=== PATIENT | female | born 1975 | race Caucasian/White ===

== ENCOUNTER 2017-05-17 23:07 | Emergency (ER) | payer BC, SELFPAY ==
[2017-05-17 23:08] VITALS: BP 154/117; PULSE 127; RESP 20; TEMP 37; O2SAT 97; BMI 37.5
--- NOTE | 2017-05-17 23:24 | EKG12_ITS ---
Test Reason : CP Blood Pressure : / mmHG Vent. Rate : 113 BPM Atrial Rate : 113 BPM P-R Int : 146 ms QRS Dur : 084 ms QT Int : 318 ms P-R-T Axes : 035 -02 -02 degrees QTc Int : 436 ms Sinus tachycardia Otherwise normal ECG Confirmed by IBRAHIMA BARILLAS ([id number]), online editor ELIA GONZALEZ ([id number] on 05/22/2017 10:01:15 AM Referred By: WALT Confirmed By:IBRAHIMA BARILLAS
--- NOTE | 2017-05-17 23:24 | RAD_ITS ---
STUDY: X-RAY CHEST REASON FOR EXAM: Female, 42 years old. Cough and fever. TECHNIQUE: PA and lateral views of the chest. COMPARISON: 05/02/2017. FINDINGS: The lungs are clear and expanded. There is no demonstrated pleural abnormality. Normal size heart. Normal mediastinum and claudia. Normal visualized pulmonary arteries. Normal visualized aortic arch and descending thoracic aorta. Normal visualized thoracic spine. Normal visualized ribs, clavicles, and shoulders. There is no demonstrated abnormality of the visualized soft tissue structures of the upper abdomen. RAD/Chest PA and Lateral IMPRESSION: No active pulmonary disease. Electronically Signed: Chris Goff MD at 0:07 EST Tel , Service support ,
--- NOTE | 2017-05-17 23:27 | ED.VISSUMM ---
- ER Visit Summary Date of Service: 05/17/17 Chief Complaint: [] Shortness of breath. History of Present Illness: The patient is a 42 F [] complaining of shortness of breath worsening over the last 1-2 days. Patient reports she was seen 3 weeks ago this emergency department and treated clinically for pneumonia with a Z-Shane despite a negative chest x-ray. She reports symptoms improved over the next week however slowly declined to the point where the patient has a consistent cough, nonproductive. She reports shortness of breath. She reports subjective fevers at home. No other complaints at this time. Physical Examination: [] Tachycardic at a rate of 127. Patient is afebrile. Remainder of vitals are within normal limits. Cardiovascular exam reveals slight tachycardia however regular rhythm. Lungs are clear to auscultation without wheezing, rhonchi, Rales. Abdomen is soft and nontender. No lower extremity edema. Test Results: [] Chest x-ray 2 views negative. EKG shows normal sinus rhythm rate of 113 without ectopy or ischemic changes. CBC and BMP are within normal limits with exception of a potassium slightly low at 3.3. Rapid flu swab: Negative. Emergency Department Course and Treatment: [] Patient given intravenous fluid bolus, Toradol, Phenergan. On serial exam had slight improvement of symptoms. She was given a prescription for Tessalon Perles she had a negative workup. I did not feel that any further treatment was warranted. She was encouraged to follow-up with her primary care physician. Treatment Plan: [] Follow-up with primary care physician. Prescription anticough medicine. Disposition: [] Discharge, stable. Impression: [] Bronchitis This note was generated with [employer] dictation software. It may contain incorrect words, spelling, and punctuation that were not noted in review of the chart prior to signing ED Disposition - Plan for ED Patient: Chief Complaint: Shortness of Breath Referrals: Care Physician,No Primary [Primary Care Provider] -
[2017-05-17] MEDS: 0.9% Normal Saline 1,000 ML 1000 ML IV (23:45)
[2017-05-17] MEDS: Ketorolac 15 MG/ML Vial IV (23:45)
[2017-05-17 23:55] LABS: Absolute Neutrophil Count 2.9 X10^3/uL (2.0-7.7); Basophil# 0.01 X10^3/uL; Basophil% 0.2 % (0-1); Eosinophil# 0.01 X10^3/uL; Eosinophils% 0.2 % (0-5); Hematocrit 38.4 % (37-47); Hemoglobin 13.4 g/dl (12.0-15.0); Lymphocyte % 16.8 % (19-41); Mean Corp Hgb Conc 34.9 g/gl (32-36); Mean Corpuscular Hgb 31.3 pg (27.0-32.0); Mean Corpuscular Volume 89.7 fL (81-99); Mean Platelet Vol. 10.8 fl (6.2-12.0); Monocyte# 0.51 X10^3/uL; Monocyte% 12.3 % (0-10); Neutrophil # 2.92 X10^3/uL (2.7-7.7); Neutrophil % 70.3 % (47-70); Platelet Count 141 K/mm3 (150-450); RBC Distribution Width CV 12.5 % (11.6-14.6); RBC Distribution Width SD 40.4 fl (35.1-43.9); Red Blood Count 4.28 M/mm3 (4.2-5.4); White Blood Count 4.2 K/mm3 (4.4-11.0)
[2017-05-17 23:57] LABS: POSITIVE COUNT NO; POSITIVE DIFFERENTIAL NO; POSITIVE MORPHOLOGY NO
[2017-05-18 00:05] LABS: Anion Gap 10 (5-15); BUN 11 mg/dL (7-18); Calcium,Total 8.2 mg/dL (8.5-10.1); Chloride 107 mmol/L (98-107); Creatinine, Serum 0.69 mg/dL (0.55-1.02); EST Glomerular Filtration Rate 99 mL/min (>60); Est Glom Filt Rate - Afr Amer 120 mL/min (>60); Glucose 96 mg/dL (70-110); Potassium 3.3 mmol/L (3.5-5.1); Sodium Level 141 mmol/L (136-145)
--- NOTE | 2017-05-18 00:34 | ED.DEP ---
ED Disposition - Plan for ED Patient: Disposition: Home or Assisted Living Chief Complaint: Shortness of Breath Instructions: ED Upper Resp Infec No Abx Tx Prescriptions: Benzonatate [Tessalon Perle] 100 mg PO TID PRN PRN #15 cap PRN Reason: Cough Referrals: Care Physician,No Primary [Primary Care Provider] -
[2017-05-18 01:01] VITALS: BP 142/60; PULSE 82; RESP 20; O2SAT 98
== END 2017-05-18 01:02 | disposition home or self-care (01) ==
PROVIDERS: Emergency Provider Emergency Medicine
DX: J40 Bronchitis, not specified as acute or chronic (principal); Z87.01 Personal history of pneumonia (recurrent)
CPT/HCPCS: 71046; 80048; 85025; 87804; 93005; 96361; 96374; 96375; 99283; J7030

== ENCOUNTER 2018-10-18 11:26 | Emergency (ER) | payer BC, SELFPAY ==
[2018-10-18 11:27] VITALS: BP 140/95; PULSE 90; RESP 20; TEMP 36.6; O2SAT 98; BMI 33.3
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
--- NOTE | 2018-10-18 11:40 | CT_ITS ---
STUDY: CT BRAIN WITHOUT CONTRAST REASON FOR EXAM: Female, 43 years old. By gradient headache RADIATION DOSAGE (If Supplied By Facility): CTDIvol = ( 44.99 ) mGy, DLP = ( 779.24 ) mGycm TECHNIQUE: Transaxial CT imaging of the brain was performed without administration of intravenous contrast material. Sagittal and coronal 2-D MPR. Individualized dose optimization techniques were used for this CT. COMPARISON: None. FINDINGS: Extracranial soft tissues including orbital contents exhibit no acute abnormality. Craniofacial osseous structures within the field of view exhibit no acute abnormality. Paranasal sinuses, mastoid air cells and middle ear cavities are clear. Normal size ventricles and extra-axial spaces for the patient's age. Normal pituitary, brainstem and cerebellum There is no acute intracranial bleed, mass or mass effect nor any specific evidence of acute territorial infarct. CT/Brain/Head without Contrast IMPRESSION: No acute intracranial process. Electronically Signed: Lokesh Claros MD at 12:49 EDT Tel , Service support ,
[2018-10-18] MEDS: proCHLORPERazine 10 MG/2 ML Vial IV (11:52)
[2018-10-18] MEDS: DiphenhydrAMINE 50 MG/ML Syringe 25 MG IV (11:52)
[2018-10-18] MEDS: 0.9% Normal Saline 1,000 ML 999 ML IV (11:52)
[2018-10-18 11:53] LABS: Absolute Neutrophil Count 3.4 X10^3/uL (2.0-7.7); Basophil# 0.01 X10^3/uL; Basophil% 0.2 % (0-1); Eosinophil# 0.14 X10^3/uL; Eosinophils% 2.6 % (0-5); Hematocrit 39.8 % (37-47); Hemoglobin 13.6 g/dl (12.0-15.0); Mean Corp Hgb Conc 34.2 g/gl (32-36); Mean Corpuscular Hgb 30.4 pg (27.0-32.0); Mean Platelet Vol. 9.4 fl (6.2-12.0); Monocyte# 0.52 X10^3/uL; Monocyte% 9.6 % (0-10); Neutrophil # 3.43 X10^3/uL (2.7-7.7); Neutrophil % 63.4 % (47-70); Platelet Count 252 K/mm3 (150-450); RBC Distribution Width SD 38.2 fl (35.1-43.9); Red Blood Count 4.47 M/mm3 (4.2-5.4); White Blood Count 5.4 K/mm3 (4.4-11.0)
[2018-10-18 11:54] LABS: POSITIVE COUNT NO; POSITIVE DIFFERENTIAL NO; POSITIVE MORPHOLOGY NO
--- NOTE | 2018-10-18 11:55 | ED.VISSUMM ---
- ER Visit Summary Date of Service: 10/18/18 Chief Complaint: Headache History of Present Illness: The patient is a 43 F who presents with migraine headache that began today. Patient states she woke up with her headache. Patient states the pain is over the frontal and occipital areas. She admits to some photophobia. Patient admits to nausea but denies any vomiting. Patient also admits to some dizziness. Patient denies any fevers or chills. Patient denies any paresthesias or weakness. Patient denies any neck or back pain. Physical Examination: Vital signs are stable. Patient is afebrile. Patient is in no acute distress. Cranial nerves II through XII are intact. Strength is 5/5 bilaterally upper and lower extremities. There are no sensory deficits noted. Neck is supple. Trachea is midline. There is no JVD noted. Heart was regular rate and rhythm. Lungs are clear and equal bilateral. Abdomen is soft and nontender. Test Results: CT scan of the brain was obtained and was negative. CBC and basic metabolic profile were essentially within normal limits. Emergency Department Course and Treatment: Patient was given IV fluids, Compazine, and Benadryl. Patient states her headache was improving. Patient was given an injection of Toradol. Patient was instructed to rest in a dark quiet room. Patient was instructed to follow-up with her primary care physician in 5 to 7 days. Patient understood and was agreeable with the plan. All questions were answered. Disposition: Discharge home Impression: Migraine headache This note was generated with [email or web address] dictation software. It may contain incorrect words, spelling, and punctuation that were not noted in review of the chart prior to signing ED Disposition - Plan for ED Patient: Disposition: Home or Assisted Living Diagnosis: Migraine headache Instructions: HEADACHE, Unspecified Referrals: Luis Eduardo Walden MD [Primary Care Provider] - 3-5 Days
[2018-10-18 12:07] LABS: Anion Gap 6 (5-15); BUN 10 mg/dL (7-18); BUN/Creat Ratio 13.5 RATIO (10-20); Calcium,Total 8.9 mg/dL (8.5-10.1); Chloride 105 mmol/L (98-107); Creatinine, Serum 0.74 mg/dL (0.55-1.02); EST Glomerular Filtration Rate 90 mL/min (>60); Est Glom Filt Rate - Afr Amer 109 mL/min (>60); Estimated Creatinine Clearance 77.53 ml/min; Glucose 81 mg/dL (74-106); Sodium Level 141 mmol/L (136-145)
[2018-10-18] MEDS: LORazepam 2 MG/ML Syringe 0.5 MG IV (12:24)
[2018-10-18] MEDS: Ketorolac 30 MG/ML Syringe IV (13:47)
[2018-10-18 14:05] VITALS: BP 130/80; PULSE 88; RESP 18; O2SAT 98
== END 2018-10-18 14:09 | disposition home or self-care (01) ==
PROVIDERS: Emergency Provider Emergency Medicine; Family Provider Family Medicine; PCP Family Medicine
DX: G43.909 Migraine, unspecified, not intractable, without status migrainosus (principal)
CPT/HCPCS: 70450; 80048; 85025; 96361; 96374; 96375; 99283; J7030; A4216

== ENCOUNTER 2019-08-23 17:06 | Emergency (ER) | payer BC, SELFPAY ==
[2019-08-23 17:09] VITALS: BP 134/92; PULSE 102; PULSE 109; RESP 18; RESP 19; TEMP 36.9; O2SAT 96; O2SAT 97; BMI 34.7
--- NOTE | 2019-08-23 17:45 | RAD_ITS ---
STUDY: X-RAY - LEFT KNEE REASON FOR EXAM: Female, 44 years old. WORSENING KNEE PAIN S/P INJURY FEW DAYS AGO TECHNIQUE: 4 view(s) of the knee. COMPARISON: None. FINDINGS: Normal visualized distal femur. Normal visualized proximal tibia and fibula. Normal proximal tibiofibular articulation. Normal medial femorotibial compartment. Normal lateral femorotibial compartment. Normal patellofemoral articulation. The soft tissue structures are unremarkable. RAD/Knee 4 or More Views IMPRESSION: Normal x-ray examination of the knee. Electronically Signed: Reyna Shrestha MD at 18:06 EDT Tel , Service support ,
[2019-08-23] MEDS: Ibuprofen 600 MG Tablet PO (17:54)
--- NOTE | 2019-08-23 18:06 | ED.DCSUM_ITS ---
- ER Visit Summary Date of Service: 08/23/19 Chief Complaint: Left knee pain History of Present Illness: The patient is a [address] Jan Plata. She reports that a week ago her 3-year-old granddaughter jumped on her left knee while she had a straight on a couch. Reports that since that time she had a sharp pain Zeta 10 at worst and 6 out of 10 currently. Is worsened by bending or walking. Is relieved by rest. She is not taken anything for pain. She denies any numbness or weakness distally. Denies any other injuries or complaints. Physical Examination: Vitals: Stable. Afebrile. General: Well-nourished and well-developed. Head: Normocephalic atraumatic. Neck: Supple, no lymphadenopathy. No JVD. Nontender. Cardiovascular: Regular rate and rhythm. No murmurs. Respiratory: No respiratory distress. Clear to auscultation bilaterally. Abdominal: Soft, nontender, nondistended, normal bowel sounds. No guarding, rebound, or peritoneal signs. Back: Nontender. Extremities: Moderate diffuse rash outpatient over her knee with a mild joint effusion. She has pain, but no ligamentous instability with anterior/posterior drawer or medial/lateral stress. She has a negative Aubree bilaterally. She is neuro vas intact distal to this. Skin: Normal color, no rash. Neurologic: Alert and oriented ?3. Cranial nerves II through XII are intact. Normal strength and sensation. Psych: Normal affect. Test Results: Clinical Impression(s) from Imaging Studies Knee X-Ray 08/23/19 17:45 IMPRESSION: Normal x-ray examination of the knee. Electronically Signed: Reyna Shrestha MD at 18:06 EDT Tel , Service support , Emergency Department Course and Treatment: Patient was here with ibuprofen. She is resting comfortably. She refused crutches. Treatment Plan: Had a prolonged discussion with the patient that I cannot rule out a ligamentous or cartilaginous injury. She will be discharged with symptomatic care. Ice the area. Use Tylenol and/or ibuprofen for pain. Follow-up Dr. Salmon in 1 week if not improving. Return to the emergency department for any worsening symptoms. Disposition: To home in improved and stable condition. Impression: 1. Left knee pain, uncertain cause. This note was generated with [employer] dictation software. It may contain incorrect words, spelling, and punctuation that were not noted in review of the chart prior to signing ED Disposition - Plan for ED Patient: Disposition: Home or Assisted Living Instructions: ED Knee Pain [facility] Prescriptions: Naproxen [Naprosyn] 500 mg PO BID #14 tab Prescription Printed Hydrocodone Bitart/Apap 5-325 [Boley 5MG-325MG] 1 tab PO Q4H PRN PRN 2 Days #10 tab PRN Reason: Pain Prescription Printed Referrals: Toshia Salmon DO [STAFF PHYSICIAN] - 1 Week if not improving
== END 2019-08-23 18:29 | disposition home or self-care (01) ==
PROVIDERS: Emergency Provider Emergency Medicine; PCP Family Medicine
DX: M25.562 Pain in left knee (principal); F32.9 Major depressive disorder, single episode, unspecified; F43.10 Post-traumatic stress disorder, unspecified
CPT/HCPCS: 73564; 99283

== ENCOUNTER 2020-04-18 10:24 | Emergency (ER) | payer BC, SELFPAY ==
[2020-04-18 10:25] VITALS: BP 126/80; PULSE 89; RESP 16; TEMP 35.8; O2SAT 97; BMI 34.0
[2020-04-18 10:33] VITALS: O2SAT 98
--- NOTE | 2020-04-18 10:38 | ED.VIS.URI ---
History of Present Illness Informant: Patient Onset: Days - 4 days Context: Gradual Onset Timing: Continuous Quality: Aching Location: Myalgias Current Severity: Moderate Maximum Severity: Moderate Worsened by: - - Nothing Relieved by: Tylenol, NSAIDs Associated Symptoms: Nasal Congestion, Myalgias, Nonproductive cough. Negative for: Headache, Sinus Pressure, Nausea, Vomiting, Diarrhea, Shortness of Breath, Chest Pain, Hemoptysis, Productive Cough Narrative: 45-year-old female history of depression denies any other significant past medical history presents with concern for COVID-19. Her daughter tested +6 days ago. For the last 4 days she has had a nonproductive cough, myalgias and chills, and this morning she woke up and lost her senses of both taste and smell. No fever. No chest pain no shortness of breath no hemoptysis. No leg pain or swelling. No vomiting or diarrhea. She is not lightheaded or dizzy. Prior similar symptoms: No Recent Illness/Hospitalization: No <Deuce Allen - Last Filed: 04/18/20 10:38> <Thad Harp - Last Filed: 04/18/20 13:14> Chief Complaint: Cough Past Medical History Prior records reviewed: Yes Past Medical History: - - Depression Surgical History: no surgical history Lives: With Family Smoking Status: Never smoker Alcohol: None Drugs: None <Deuce Allen - Last Filed: 04/18/20 10:38> <Thad Harp - Last Filed: 04/18/20 13:14> - Allergies and Home Meds Allergies/Adverse Reactions: Allergies No Known Allergies Allergy (Verified 04/18/20 10:25) Primary Care Physician: Luis Eduardo Walden MD [Primary Care Provider] - 1 Week if not improving Review of Systems All systems negative except as indicated General: Denies: Chills, Fever, Sweats Eyes: Denies: Visual changes - bilaterally, Blurred Vision - bilaterally, Diplopia ENT: Denies: Rhinorrhea, Sore throat Cardiovascular: Denies: Chest pain, Palpitations, Heart racing Respiratory: Reports: Cough. Denies: Dyspnea, Sputum, Dyspnea on exertion, Orthopnea, Paroxysmal nocturnal dyspnea Gastrointestinal: Denies: Abdominal pain, Nausea, Vomiting, Diarrhea, Constipation, Melena, Hematochezia Genitourinary: Denies: Dysuria, Hematuria, Frequency Musculoskeletal: Reports: Myalgias. Denies: Arthralgias, Neck pain, Back pain, Extremity Pain Skin: Denies: Rash, Wounds Neurological: Denies: Headache, Weakness, Parasthesia, Numbness <Deuce Allen - Last Filed: 04/18/20 10:38> Physical Exam Vital Signs/Narrative: Vital Signs Temp Pulse Resp BP Pulse Ox 04/18/20 10:25 96.5 F L 89 16 126/80 H 97 Inital Vital Signs reviewed: Yes General: Well nourished, Well developed Head: Normocephalic, Atraumatic Eyes: Perrl, EOMI Ears: Normal external canal, TM's clear Nose: Normal Inspection, No Rhinorrhea Mouth/Throat: Normal Inspection, No Posterior Erythema Neck: Supple, Nontender Cardiovascular: Regular rate, Regular rhythm, No murmurs Respiratory: No distress, CTA bilaterally, Chest nontender Abdomen: Soft, Nontender, Nondistended, Normal bowel sounds Back: Nontender, Normal Inspection Extremities: Nontender, No edema Skin: Normal color, No rash Neurological: Alert, Oriented x3, Cranial nerves II-XII grossly intact, Normal Strength, Normal Sensation Psychological: Normal affect <Deuce Allen - Last Filed: 04/18/20 10:38> Vital Signs/Narrative: Vital Signs Temp Pulse Resp BP Pulse Ox 04/18/20 10:25 96.5 F L 89 16 126/80 H 97 <Thad Harp - Last Filed: 04/18/20 13:14> Diagnostic/Tx/Re-eval - Medical Decision Making Patient overall is well-appearing. She does not clinically appear to be dehydrated. Her pulse ox is 98% on room air. Her heart rate is in the low 80s. She has afebrile. Her respiratory rate is normal. She was reassured. Patient will be discharged home and advised to quarantine and purchase a pulse ox to check this at home. She was discharged with a send out test for COVID-19. We discussed supportive care. She was agreeable with plan of care and all questions were answered. <Deuce Allen - Last Filed: 04/18/20 10:38> - Medical Decision Making Patient seen and examined. Agree with above assessment and plan. Covid test pending. She is to isolate until this returns. She understands and is agreeable this plan. Discharged in stable condition. <Thad Hapr - Last Filed: 04/18/20 13:14> ED Disposition <Deuce Allen - Last Filed: 04/18/20 10:38> <Thad Harp - Last Filed: 04/18/20 13:14> - Plan for ED Patient: Disposition: Home or Assisted Living Diagnosis: COVID-19 Instructions: Coronavirus Disease 2019 (COVID-19): Caring for Yourself or Others Referrals: Luis Eduardo Walden MD [Primary Care Provider] - 1 Week if not improving
== END 2020-04-18 10:56 | disposition home or self-care (01) ==
LOC: ED 10:47
PROVIDERS: Emergency Provider Physician Assistant Medical; PCP Family Medicine
DX: U07.1 COVID-19 (principal); F32.9 Major depressive disorder, single episode, unspecified
CPT/HCPCS: 87635; 99282; U0003

== ENCOUNTER 2020-08-27 13:41 | Emergency (ER) | payer BC, SELFPAY ==
[2020-08-27 13:43] VITALS: BP 131/83; PULSE 62; RESP 14; TEMP 35.9; O2SAT 100; BMI 19.4
--- NOTE | 2020-08-27 14:31 | EKG12_ITS ---
Test Reason : Blood Pressure : / mmHG Vent. Rate : 084 BPM Atrial Rate : 084 BPM P-R Int : 142 ms QRS Dur : 088 ms QT Int : 366 ms P-R-T Axes : 037 000 010 degrees QTc Int : 432 ms Normal sinus rhythm Normal ECG Confirmed by SHELBIE JO, PIOTR ([id number]), digital editor JOSH MATTHEWS ([id number]) on 08/30/2020 12:53:36 PM Referred By: DELORIS/PABLO Confirmed By:PIOTR MORFIN MD
--- NOTE | 2020-08-27 14:31 | EDS_ITS ---
HPI History of Present Illness Chief Complaint: Palpitations Informant: patient Onset/Context/Timing Onset: Days (2) Activity at onset: gradual Timing: Continuous Quality: Positive for Heaviness (nonpleuritic) Location: Substernal Current Severity: Moderate Maximum Severity: Moderate Worsened By: Nothing; Not Worsened By Exertion and Breathing Relieved By: Nothing Associated Symptoms: Positive for Dyspnea (not short of breath but heaviness makes it feel like it's hard to take a breath), Lightheadedness and Palpitations; Negative for Nausea, Vomiting, Diaphoresis, Cough and Fever Narrative Narrative: Patient states she has had palpitations off and on for a couple years but in the last 2 or 3 days it has been much worse and more frequent. It feels brief, but now she is having clusters which occasionally makes her feel lightheaded. No near syncope or syncope. Chest discomfort has been constant for the last 2 days despite the palpitations. She has never had them diagnosed or looked into before now. She does not use caffeine or illicit drugs. She does not smoke. She is on multiple mental health medications, they have been stable with regards to doses for years and have not changed recently. She denies taking any mfrk-bae-kehpkes medications for anything. No recent travel or hospitalization or surgery, but she was having her leg looked at recently and had some ABIs at [facility] which turned out normal. [facility] Medical History (Updated 08/27/20 @ 15:[address] Hakeem Lakhani MD) Anxiety Home Medications aripiprazole 08/23/19 [History Last Taken Unknown] bupropion HCl 300 mg PO 08/23/19 [History Last Taken Unknown] clonazepam 08/23/19 [History Last Taken Unknown] fluoxetine 60 mg PO DAILY 08/23/19 [History Last Taken Unknown] naproxen 500 mg PO BID #14 tab 08/23/19 [Rx Last Taken Unknown] Allergy/AdvReac Type Severity Reaction Status Date / Time No Known Allergies Allergy Verified 08/27/20 13:43 Social History (Updated 08/27/20 @ 14:[address] Hakeem Lakhani MD) Smoking Status: Never smoker substance use type: does not use caffeine: No ROS ROS ED Constitutional Constitutional ED: Denies chills or fever(s) Eyes Eyes: Denies change in vision or diplopia ENT ENT ED: Denies rhinorrhea or sore throat Cardiovascular Cardiovascular: Reports chest pain and palpitations; Denies rapid heart rate or syncope Respiratory/Chest Respiratory/Chest: Denies cough or dyspnea Gastrointestinal Gastrointestinal: Denies abdominal pain, diarrhea, nausea or vomiting Genitourinary Genitourinary ED: Denies dysuria or hematuria Musculoskeletal Musculoskeletal: Denies back pain or neck pain Integumentary Denies abscess or rash Neurologic Neurologic: Denies headache(s), paresthesias or weakness Psychiatric Psychiatric: Denies anxiety or suicidal thoughts EXAM Physical Exam Const Vital Signs: 08/27/20 13:43 08/27/20 14:39 08/27/20 14:41 Temperature 96.7 F L Temperature Source Temporal Pulse Rate 62 Respiratory Rate 14 Respiratory Effort Normal Non-Labored Blood Pressure 131/83 H Blood Pressure Mean 99 Pulse Ox 100 98 Oxygen Delivery Method Room Air 08/27/20 15:50 Temperature Temperature Source Pulse Rate 79 Respiratory Rate 20 H Respiratory Effort Blood Pressure Blood Pressure Mean Pulse Ox 100 Oxygen Delivery Method Room Air Positive well nourished and well developed General Appearance ED: well developed and NAD HEENT Reports moist mucous membranes normocephalic and atraumatic Eyes PERRL and EOMs intact bilaterally Neck full ROM and supple Resp normal respiratory effort and clear to auscultation bilaterally Cardio regular rate, regular rhythm and no murmurs GI non-tender and non-distended Auscultation: normoactive bowel sounds Palpation: soft Back/Spine no CVA tenderness General Back: other FROM Extremity normal to inspection General Extremety ED: Negative for edema, pulses abnormal or tenderness General Extremity: Negative for edema or pulses abnormal Neuro oriented x3, CN's II-XII intact bilaterally and no sensory deficits noted Sensorium / Orientation: awake and alert Motor Exam: strength 5/5 throughout Psych mental status grossly normal and thought process normal Psych Narrative: mildly anxious Skin no rashes or lesions noted and no wounds MDM MDM MDM Narrative Medical decision making narrative: Labs, EKG, chest x-ray 1 view and mitral rotation is normal, and the rest of the work-up is unremarkable. Patient did not have any obvious ectopy on the monitor but her symptoms sound consistent with PVCs. Plan is to hook her up to a 24-hour Holter monitor and have her follow-up with cardiology as an outpatient. Advised to continue her medications as prescribed for now, and avoid stimulants and illicit drugs which she has already done. Discussed w/ Dr. Nickerson cardiology, who agrees w/ this plan. Lab Data Attestation: I reviewed the patient's lab results. Labs: Laboratory Results - last 24 hr 08/27/20 08/27/20 08/27/20 14:30 14:30 15:46 WBC 7.9 RBC 4.26 Hgb 13.2 Hct 39.3 MCV 92.3 MCH 31.0 MCHC 33.6 RDW Std Deviation 41.3 RDW Coeff of Marquita 12.2 Plt Count 227 MPV 9.8 Immature Gran % (Auto) 0.300 Neut % (Auto) 61.9 Lymph % (Auto) 28.5 Hartley % (Auto) 8.2 Eos % (Auto) 1.0 Baso % (Auto) 0.1 Absolute Neuts (auto) 4.9 Absolute Lymphs (auto) 2.26 Nucleated RBC % 0 Sodium Cancelled 139 Potassium Cancelled 3.7 Chloride Cancelled 105 Carbon Dioxide Cancelled 31.0 Anion Gap Cancelled 3 L BUN Cancelled 9 Creatinine Cancelled 0.80 Estim Creat Clear Calc Cancelled 67.57 Est GFR (MDRD) Af Amer Cancelled 100 Est GFR (MDRD) Non-Af Cancelled 83 BUN/Creatinine Ratio Cancelled 11.3 Glucose Cancelled 86 Calcium Cancelled 9.2 Troponin I Cancelled < 0.015 Radiography Chest X-Ray - ED: 1 View, Read by ED Physician, Read by Radiologist, Normal, Heart, Lungs, Bony Structures and No Acute Disease Diagnostic Testing: Radiology Impression Chest X-Ray 08/27/20 14:40 IMPRESSION: Normal x-ray examination of the chest. Electronically Signed: Cody Epperson MD at 14:56 EDT , Service support , EKG Initial EKG: Attestation: I personally reviewed and interpreted this EKG as follows: Interpretation: Sinus Rhythm and No Acute Injury Pattern (normal EKG. no ectopy.) Discharge Plan Triage Chief Complaint: Palpitations ED Provider: Hakeem Lakhani Dx/Rx/DC Orders Clinical Impression: Palpitations Instructions: ED Holter Monitor, ED Palpitations Prescriptions: No Action clonazepam 1 tablet RF: 0 fluoxetine 20 MG capsule 60 mg PO DAILY RF: 0 bupropion HCl 300 MG tablet extended release 24 hr 300 mg PO RF: 0 aripiprazole 2 tablet RF: 0 naproxen 500 MG tablet 500 mg PO BID Qty: 14 RF: 0 Primary Care Provider: Sloan Robles NP Referrals: Dez Ortiz MD [STAFF PHYSICIAN] - (call for appt; may see any available taxi cab driver/staff) Sloan Robles NP, [employer] [Primary Care Provider] - Disposition Disposition: Home, self care
[2020-08-27 14:39] VITALS: O2SAT 98
--- NOTE | 2020-08-27 14:40 | RAD_ITS ---
STUDY: X-RAY CHEST REASON FOR EXAM: Female, 45 years old. Chest pain TECHNIQUE: Single AP portable view of the chest. COMPARISON: Comparison is made with prior study dated 05/17/2017. FINDINGS: EKG electrodes are seen. The lungs are clear and expanded. There is no demonstrated pleural abnormality. Normal size heart. Normal mediastinum and claudia. Normal visualized pulmonary arteries. Normal visualized aortic arch and descending thoracic aorta. Normal visualized thoracic spine. Normal visualized ribs, clavicles, and shoulders. There is no demonstrated abnormality of the visualized soft tissue structures of the upper abdomen. RAD/Chest 1 View (Portable) IMPRESSION: Normal x-ray examination of the chest. Electronically Signed: Cody Epperson MD at 14:56 EDT , Service support ,
[2020-08-27 14:49] LABS: Absolute Lymphocyte Count 2.26 X10^3/uL (0.83-4.51); Absolute Neutrophil Count 4.9 X10^3/uL (2.0-7.7); Basophil# 0.01 X10^3/uL; Basophil% 0.1 % (0-1); Eosinophil# 0.08 X10^3/uL; Hematocrit 39.3 % (37-47); Hemoglobin 13.2 g/dL (12.0-15.0); Lymphocyte # 2.26 X10^3/ul (0.83-4.51); Lymphocyte % 28.5 % (19-41); Mean Corp Hgb Conc 33.6 g/dL (32-36); Mean Corpuscular Volume 92.3 fL (81-99); Mean Platelet Vol. 9.8 fl (6.2-12.0); Monocyte# 0.65 X10^3/uL; Monocyte% 8.2 % (0-10); NRBC Flagged by Analyzer 0 % (0-5); Neutrophil # 4.91 X10^3/uL (2.7-7.7); Neutrophil % 61.9 % (47-70); Platelet Count 227 K/mm3 (150-450); RBC Distribution Width CV 12.2 % (11.6-14.6); RBC Distribution Width SD 41.3 fl (35.1-43.9); Red Blood Count 4.26 M/mm3 (4.2-5.4); White Blood Count 7.9 K/mm3 (4.4-11.0)
[2020-08-27 15:50] VITALS: PULSE 79; RESP 20; O2SAT 100
[2020-08-27 16:13] LABS: Anion Gap 3 (5-15); BUN 9 mg/dL (7-18); BUN/Creat Ratio 11.3 RATIO (10-20); Calcium,Total 9.2 mg/dL (8.5-10.1); Chloride 105 mmol/L (98-107); EST Glomerular Filtration Rate 83 mL/min (>60); Est Glom Filt Rate - Afr Amer 100 mL/min (>60); Estimated Creatinine Clearance 67.57 ml/min; Glucose 86 mg/dL (74-106); Potassium 3.7 mmol/L (3.5-5.1); Sodium Level 139 mmol/L (136-145)
[2020-08-27 17:48] VITALS: BP 131/79; PULSE 79; RESP 16; O2SAT 99
== END 2020-08-27 17:49 | disposition home or self-care (01) ==
PROVIDERS: Emergency Provider Emergency Medicine; PCP Nurse Practitioner Family
DX: R00.2 Palpitations (principal); R06.00 Dyspnea, unspecified; R42 Dizziness and giddiness
CPT/HCPCS: 71045; 80048; 84484; 85025; 93005; 93225; 93226; 99283; A4216

== ENCOUNTER → 2020-08-27 16:55 | Outpatient (CLI) | payer BC, SELFPAY ==
[2020-08-27 13:43] VITALS: BMI 19.4
== END ==
PROVIDERS: PCP Nurse Practitioner Family; Visit Provider Specialist
DX: R00.2 Palpitations (principal)
CPT/HCPCS: 93225; 93226; A4216

== ENCOUNTER 2020-08-30 09:11 | Emergency (ER) | payer BC, SELFPAY ==
[2020-08-30 09:11] VITALS: BP 146/99; PULSE 93; RESP 18; TEMP 36.6; O2SAT 98; BMI 36.6
--- NOTE | 2020-08-30 09:22 | EKG12_ITS ---
Test Reason : PALPS Blood Pressure : / mmHG Vent. Rate : 081 BPM Atrial Rate : 081 BPM P-R Int : 142 ms QRS Dur : 086 ms QT Int : 372 ms P-R-T Axes : 035 -01 005 degrees QTc Int : 432 ms Normal sinus rhythm Normal ECG Confirmed by CRISTY JO, SANTIAGO ([id number]), film and video editor JOSH MATTHEWS ([id number]) on 09/01/2020 8:16:24 AM Referred By: Confirmed By:SANTIAGO MUNIZ MD
[2020-08-30 10:00] LABS: Anion Gap 6 (5-15); BUN 15 mg/dL (7-18); BUN/Creat Ratio 18.8 RATIO (10-20); Chloride 103 mmol/L (98-107); EST Glomerular Filtration Rate 83 mL/min (>60); Est Glom Filt Rate - Afr Amer 100 mL/min (>60); Estimated Creatinine Clearance 70.24 ml/min; Glucose 82 mg/dL (74-106); Sodium Level 139 mmol/L (136-145)
--- NOTE | 2020-08-30 10:19 | EDS_ITS ---
HPI History of Present Illness Chief Complaint: Palpitations Informant: patient Onset/Context/Timing Onset: Days Context: Sudden Onset Timing: Intermittent Quality: Palpitations, abnormal beats Location: Chest Current Severity: Mild Maximum Severity: Severe Worsened by: History of PTSD and anxiety Relieved by: Nothing Associated Symptoms Associated Symptoms: Shortness of breath and anxiety Narrative Narrative: Patient is a 45-year-old woman who presents with palpitations. She was seen last week. Holter monitor was ordered. She states she turned in the Holter monitor. She has an apple watch. She downloaded rhythm strips when she was having palpitations. The rhythm strips reveal a sinus rhythm with 2-3 premature ventricular beats per 32nd intervals. She does admit to caffeinated beverages. She states she is only drinking 1 pop can per day. She denies any other symptoms. Prior similar symptoms: Yes Recent Illness/Hospitalization: Yes [facility] Medical History (Updated 08/30/20 @ 10:[address] Aron Garcia MD) Anxiety Depression PTSD (post-traumatic stress disorder) Home Medications aripiprazole 08/23/19 [History Last Taken Unknown] bupropion HCl 300 mg PO 08/23/19 [History Last Taken Unknown] clonazepam 08/23/19 [History Last Taken Unknown] fluoxetine 60 mg PO DAILY 08/23/19 [History Last Taken Unknown] naproxen 500 mg PO BID #14 tab 08/23/19 [Rx Last Taken Unknown] Allergy/AdvReac Type Severity Reaction Status Date / Time No Known Allergies Allergy Verified 08/30/20 09:14 no surgical history Social History (Updated 08/30/20 @ 10:[address] Aron Garcia MD) Smoking Status: Never smoker alcohol intake: never substance use type: does not use caffeine: No ROS ROS ED Constitutional Constitutional ED: Denies chills, fever(s) or sweats Eyes Eyes: Denies blurry vision or change in vision ENT ENT ED: Denies ear pain, rhinorrhea or sore throat Cardiovascular Cardiovascular: Reports palpitations; Denies chest pain, orthopnea or racing heartbeat Respiratory/Chest Respiratory/Chest: Reports dyspnea; Denies cough, dyspnea on exertion or orthopnea Gastrointestinal Gastrointestinal: Denies abdominal pain, nausea or vomiting Genitourinary Genitourinary ED: Denies dysuria, hematuria or urinary frequency Musculoskeletal Musculoskeletal: Denies arthralgias, back pain, myalgias or neck pain Integumentary Denies rash Neurologic Neurologic: Denies headache(s) or weakness Psychiatric Psychiatric: Reports anxiety and depression; Denies suicidal thoughts Allergic/Immunologic Allergic/Immunologic ED: Denies mouth swelling, tongue swelling or urticaria EXAM Physical Exam Const Vital Signs: 08/30/20 09:11 08/30/20 09:21 Temperature 97.8 F Temperature Source Temporal Pulse Rate 93 Respiratory Rate 18 Respiratory Effort Normal Non-Labored Respiratory Pattern Normal Blood Pressure 146/99 H Blood Pressure Mean 114 Pulse Ox 98 Oxygen Delivery Method Room Air Positive well nourished, well developed and obese General Appearance ED: well developed and other Patient appears slightly anxious and admits she is anxious. Nutritional Appearance: obese HEENT Reports moist mucous membranes HEENT Narrative: There is no asymmetry. There is no evidence of angioedema. Trachea is midline. There is no inspiratory expiratory stridor. Eyes PERRL and EOMs intact bilaterally General Eye ED: Negative for pale conjunctiva or scleral icterus Neck no lymphadenopathy, supple and no JVD Chest Wall inspection of chest normal Resp normal respiratory effort and clear to auscultation bilaterally Effort and Inspection: pain with movement Cardio regular rate, S1 normal heart sound, S2 normal heart sound and no murmurs Rate: other Other Details: Occasional ectopic beat which is a premature ventricular beat. Back/Spine no CVA tenderness Extremity normal to inspection General Extremety ED: Negative for edema General Extremity: Negative for edema Neuro oriented x3, CN's II-XII intact bilaterally and no sensory deficits noted Sensorium / Orientation: alert Motor Exam: strength 5/5 throughout Psych Mood & Affect: anxious Skin no rashes or lesions noted and no wounds MDM MDM MDM Narrative Medical decision making narrative: EKG was obtained to determine if there is any evidence of ischemia. Electrolytes were obtained as well. Call was placed to cardiovascular. The Holter monitor has not been read yet. Patient was informed EKG is unremarkable with no premature beats. Her blood work was unremarkable. Recommended follow up with the physician caring for her anxiety since there is a significant anxiety component. Also recommended she keep appointment with hot stick worker. Lab Data Labs: Laboratory Results - last 24 hr 08/30/20 09:35 Sodium 139 Potassium 4.0 Chloride 103 Carbon Dioxide 30.0 Anion Gap 6 BUN 15 Creatinine 0.80 Estim Creat Clear Calc 70.24 Est GFR (MDRD) Af Amer 100 Est GFR (MDRD) Non-Af 83 BUN/Creatinine Ratio 18.8 Glucose 82 Calcium 9.0 EKG Initial EKG: Attestation: I personally reviewed and interpreted this EKG as follows: Interpretation: Sinus Rhythm Comments: Normal sinus rhythm ventricular rate 81. [place] interval is 142 ms. Duration is 86 ms. QT duration 372 ms. [place] is normal. The EKG is normal and unchanged from prior. Discharge Plan Triage Chief Complaint: Palpitations ED Provider: Aron Garcia Dx/Rx/DC Orders Clinical Impression: Intermittent palpitations, Premature ventricular beat, Anxiety reaction Instructions: Premature Ventricular Contractions, ED Anxiety Reaction, ED Palpitations Prescriptions: No Action clonazepam 1 tablet RF: 0 fluoxetine 20 MG capsule 60 mg PO DAILY RF: 0 bupropion HCl 300 MG tablet extended release 24 hr 300 mg PO RF: 0 aripiprazole 2 tablet RF: 0 naproxen 500 MG tablet 500 mg PO BID Qty: 14 RF: 0 Primary Care Provider: Sloan Robles NP Referrals: Magdy Nickerson MD [STAFF PHYSICIAN] - 1-2 Weeks Sloan Robles NP, ARTIFICIAL INSEMINATOR-C [Primary Care Provider] - 1 Week (May need additional medication for anxiety disorder.) Disposition Disposition: Home, self care
[2020-08-30 10:29] VITALS: BP 118/93; PULSE 76; RESP 14; O2SAT 100
== END 2020-08-30 10:30 | disposition home or self-care (01) ==
PROVIDERS: Emergency Provider Emergency Medicine; PCP Nurse Practitioner Family
DX: R00.2 Palpitations (principal); I49.3 Ventricular premature depolarization; F41.1 Generalized anxiety disorder
CPT/HCPCS: 80048; 93005; 99284; A4216

== ENCOUNTER 2022-03-18 13:25 | Emergency (ER) | payer BC, SELFPAY ==
[2022-03-18] VITALS (7 sets, daily range): BP systolic 158–182; BP diastolic 89–105; PULSE 73–109; RESP 16–20; TEMP 36.6; O2SAT 95–100; BMI 36.6
--- NOTE | 2022-03-18 13:40 | EKG12_ITS ---
Test Reason : CP/SOB/PALPS Blood Pressure : / mmHG Vent. Rate : 095 BPM Atrial Rate : 095 BPM P-R Int : 140 ms QRS Dur : 082 ms QT Int : 340 ms P-R-T Axes : 033 -10 -17 degrees QTc Int : 427 ms Normal sinus rhythm Left ventricular hypertrophy with repolarization abnormality ( R in aVL ) Abnormal ECG Confirmed by SHELBIE JO, PIOTR ([id number]), editorial specialist JOSH MATTHEWS ([id number]) on 03/20/2022 11:56:58 AM Referred By: JIM/DELORIS Confirmed By:PIOTR MORFIN MD
--- NOTE | 2022-03-18 14:33 | EX.ED.DYSGE1 ---
HPI History of Present Illness Chief Complaint: Palpitations Onset/Context/Timing Onset: Weeks (1) Context: Gradual Onset Timing: Intermittent Quality: Pressure Location: Chest and neck Worsened by: Activity Relieved by: Laying on her left side Narrative Narrative: Patient presents with palpitations that have been intermittent over the past week. Patient states that they became worse today. Patient states that it feels like a pressure in her chest and up into her neck. Patient states are worse with activity. Patient is better when she lays on her left side. Patient states she did have a probable syncopal episode today. Patient states she was sitting in bed and remembers waking up in bed. Patient did not fall to the floor. Patient thinks she did lose consciousness for a brief time. Patient does admit to some shortness of breath. Patient denies any fevers or chills. [facility] Medical History Anxiety Depression History of anorexia nervosa History of palpitations PTSD (post-traumatic stress disorder) Home Medications aripiprazole 2 mg tablet 08/23/19 [History Last Taken Unknown] bupropion HCl 300 mg 24 hr tablet, extended release 300 mg PO 08/23/19 [History Last Taken Unknown] clonazepam 1 mg tablet 08/23/19 [History Last Taken Unknown] fluoxetine 20 mg capsule 60 mg PO DAILY 08/23/19 [History Last Taken Unknown] naproxen 500 mg tablet 500 mg PO BID #14 tabs 08/23/19 [Rx Last Taken Unknown] Allergy/AdvReac Type Severity Reaction Status Date / Time No Known Allergies Allergy Verified 03/18/22 13:26 Social History Smoking Status: Never smoker alcohol intake: never substance use type: does not use caffeine: No ROS ROS ED Constitutional Constitutional ED: Denies chills or fever(s) Eyes Eyes: Denies blurry vision or change in vision ENT ENT ED: Denies rhinorrhea or sore throat Cardiovascular Cardiovascular: Reports chest pain and palpitations Respiratory/Chest Respiratory/Chest: Reports dyspnea; Denies cough Gastrointestinal Gastrointestinal: Denies nausea or vomiting Genitourinary Genitourinary ED: Denies dysuria or hematuria Musculoskeletal Musculoskeletal: Reports back pain and neck pain Integumentary Denies abscess or rash Neurologic Neurologic: Denies headache(s) or weakness Allergic/Immunologic Allergic/Immunologic ED: Denies mouth swelling or urticaria EXAM Physical Exam Const Vital Signs: 03/18/22 13:26 03/18/22 13:44 Temperature 97.8 F Temperature Source Temporal Pulse Rate 109 H Respiratory Rate 20 H Respiratory Effort Short of Breath Respiratory Pattern Tachypnea Blood Pressure 182/105 H Blood Pressure Mean 130 Pulse Ox 100 Oxygen Delivery Method Room Air Positive well nourished, well developed and obese General Appearance ED: well developed and NAD Nutritional Appearance: obese HEENT normocephalic and atraumatic Eyes PERRL and EOMs intact bilaterally Neck supple and no JVD Chest Wall palpation of chest normal Resp normal respiratory effort and clear to auscultation bilaterally Effort and Inspection: Negative for respiratory distress Cardio regular rate, regular rhythm and no murmurs GI normal to inspection, nondistended, normoactive bowel sounds, soft to palpation, non-tender and non-distended Extremity normal to inspection General Extremety ED: Negative for edema or tenderness General Extremity: Negative for edema Neuro oriented x3, CN's II-XII intact bilaterally and no sensory deficits noted Sensorium / Orientation: awake and alert Motor Exam: strength 5/5 throughout Psych mental status grossly normal MDM MDM MDM Narrative Medical decision making narrative: EKG was obtained. On my interpretation, it showed a normal sinus rhythm with a rate of 95. IN interval, QRS interval, and QTc intervals were all normal. Kendrick was normal. There are no acute ST or T wave changes. PA and lateral chest x-ray was obtained. There are 2 views. On my interpretation, lung diaz are clear. There is normal cardiac silhouette. Bony thorax is normal. There is no acute process noted. Radiologist also interpreted the x-ray and agrees. CBC was within normal limits. PT with INR and PTT within normal limits. Comprehensive metabolic profile was within normal limits. D-dimer was elevated at 1.95. Because of this, CTA of the chest was obtained. There is no evidence of pulmonary embolism or aortic dissection. This was interpreted by the radiologist and reviewed by myself. Patient was feeling anxious here in the emergency department. Patient was given a dose of hydroxyzine. Patient felt better after this. Patient was instructed to follow-up with her primary care physician in 5 to 7 days. Patient was advised she may need a Holter monitor. Patient was instructed to return if worse in any way. Patient understood and was agreeable with the plan. All questions were answered. Lab Data Attestation: I reviewed the patient's lab results. Labs: Laboratory Results - last 24 hr 03/18/22 03/18/22 03/18/22 14:40 14:40 14:40 WBC 10.1 RBC 4.42 Hgb 13.2 Hct 39.4 MCV 89.1 MCH 29.9 MCHC 33.5 RDW Std Deviation 40.8 RDW Coeff of Marquita 12.5 Plt Count 253 MPV 9.8 Immature Gran % (Auto) 0.500 Neut % (Auto) 68.2 Lymph % (Auto) 23.6 Sully % (Auto) 6.5 Eos % (Auto) 0.9 Baso % (Auto) 0.3 Absolute Neuts (auto) 6.9 Absolute Lymphs (auto) 2.38 Nucleated RBC % 0 PT 12.8 INR 1.0 APTT 27.1 D-Dimer Quant (PE/DVT) 1.95 H* Sodium 141 Potassium 3.3 L Chloride 105 Carbon Dioxide 28.0 Anion Gap 8 BUN 15 Creatinine 0.79 Estim Creat Clear Calc 69.63 Est GFR (MDRD) Af Amer 100 Est GFR (MDRD) Non-Af 83 BUN/Creatinine Ratio 19.0 Glucose 91 Calcium 9.3 Total Bilirubin 0.30 AST 29 ALT 36 Alkaline Phosphatase 98 Total Protein 7.8 Albumin 3.6 Globulin 4.2 Albumin/Globulin Ratio 0.9 Serum , Qual 03/18/22 14:40 WBC RBC Hgb Hct MCV MCH MCHC RDW Std Deviation RDW Coeff of Marquita Plt Count MPV Immature Gran % (Auto) Neut % (Auto) Lymph % (Auto) Sully % (Auto) Eos % (Auto) Baso % (Auto) Absolute Neuts (auto) Absolute Lymphs (auto) Nucleated RBC % PT INR APTT D-Dimer Quant (PE/DVT) Sodium Potassium Chloride Carbon Dioxide Anion Gap BUN Creatinine Estim Creat Clear Calc Est GFR (MDRD) Af Amer Est GFR (MDRD) Non-Af BUN/Creatinine Ratio Glucose Calcium Total Bilirubin AST ALT Alkaline Phosphatase Total Protein Albumin Globulin Albumin/Globulin Ratio Serum , Qual NEGATIVE Radiography Chest X-Ray - ED: 2 View, Read by ED Physician, Read by Radiologist and No Acute Disease Diagnostic Testing: Clinical Impression(s) from Imaging Studies Chest X-Ray 03/18/22 15:00 IMPRESSION: No acute cardiopulmonary process identified. Electronically Signed: Maryann Melchor MD at 15:16 EST , Chest CTA 03/18/22 15:24 IMPRESSION: No major central pulmonary emboli. Small peripheral emboli are difficult to exclude. Electronically Signed: Trent Hunt MD at 16:25 EST , EKG Initial EKG: Attestation: I personally reviewed and interpreted this EKG as follows: Interpretation: Sinus Rhythm (95) and No Acute Injury Pattern Prior EKG tracings: available for review Prior: Unchanged (08/30/2020) Discharge Plan Triage Chief Complaint: Palpitations ED Provider: Nabil Ortiz Dx/Rx/DC Orders Clinical Impression: Heart palpitations Instructions: ED Palpitations Prescriptions: No Action clonazepam 1 tablet fluoxetine 20 MG capsule 60 mg PO DAILY bupropion HCl 300 MG tablet extended release 24 hr 300 mg PO aripiprazole 2 tablet naproxen 500 MG tablet 500 mg PO BID Qty: 14 0RF Primary Care Provider: Sloan Robles NP Referrals: Sloan Robles NP, ACID POLYMERIZATION OPERATOR-C [Primary Care Provider] - 3-5 Days Disposition Disposition: Home, Self Care
[2022-03-18] MEDS: 0.9% Normal Saline 1,000 ML 1000 ML IV (14:47)
[2022-03-18 14:52] LABS: Absolute Lymphocyte Count 2.38 X10^3/uL (0.83-4.51); Absolute Neutrophil Count 6.9 X10^3/uL (2.0-7.7); Basophil# 0.03 X10^3/uL; Basophil% 0.3 % (0-1); Eosinophil# 0.09 X10^3/uL; Eosinophils% 0.9 % (0-5); Hematocrit 39.4 % (37-47); Hemoglobin 13.2 g/dL (12.0-15.0); Lymphocyte # 2.38 X10^3/ul (0.83-4.51); Lymphocyte % 23.6 % (19-41); Mean Corp Hgb Conc 33.5 g/dL (32-36); Mean Corpuscular Hgb 29.9 pg (27.0-32.0); Mean Corpuscular Volume 89.1 fL (81-99); Mean Platelet Vol. 9.8 fl (6.2-12.0); Monocyte# 0.66 X10^3/uL; Monocyte% 6.5 % (0-10); NRBC Flagged by Analyzer 0 % (0-5); Neutrophil # 6.89 X10^3/uL (2.7-7.7); Neutrophil % 68.2 % (47-70); Platelet Count 253 K/mm3 (150-450); RBC Distribution Width CV 12.5 % (11.6-14.6); RBC Distribution Width SD 40.8 fl (35.1-43.9); Red Blood Count 4.42 M/mm3 (4.2-5.4); White Blood Count 10.1 K/mm3 (4.4-11.0)
--- NOTE | 2022-03-18 15:00 | RAD_ITS ---
HISTORY: Chest pain. TECHNIQUE: XR Chest 2 Views. COMPARISON: 08/27/2020. FINDINGS: CARDIOMEDIASTINAL BORDERS: Cardiac silhouette within normal limits in size. Mediastinal contour unremarkable. LUNGS: Radiographically clear. Low lung volumes. PLEURA: No pleural effusion or pneumothorax seen. OSSEOUS STRUCTURES: Unremarkable. RAD/Chest PA and Lateral IMPRESSION: No acute cardiopulmonary process identified. Electronically Signed: Maryann Melchor MD at 15:16 EST ,
[2022-03-18 15:02] LABS: Internal QC Validated? YES +Cl - CLEAR BKGD; Pregnancy, Serum, hCG Quali. NEGATIVE Negative
[2022-03-18 15:06] LABS: ALB/GLOB Ratio 0.9 RATIO (0.9-2.4); AST(SGOT) 29 U/L (15-37); Alanine Aminotransfer ALT/SGPT 36 U/L (13-56); Albumin, Serum 3.6 g/dL (3.2-5.0); Alkaline Phosphatase 98 U/L (45-117); Anion Gap 8 (5-15); BUN 15 mg/dL (7-18); Calcium,Total 9.3 mg/dL (8.5-10.1); Chloride 105 mmol/L (98-107); Creatinine, Serum 0.79 mg/dL (0.55-1.02); EST Glomerular Filtration Rate 83 mL/min (>60); Est Glom Filt Rate - Afr Amer 100 mL/min (>60); Estimated Creatinine Clearance 69.63 ml/min; Globulin 4.2 g/dL (2.2-4.2); Glucose 91 mg/dL (74-106); Potassium 3.3 mmol/L (3.5-5.1); Protein, Total 7.8 g/dL (6.4-8.2); Sodium Level 141 mmol/L (136-145)
[2022-03-18 15:12] LABS: Prothrombin Time (Protime)PT. 12.8 SECONDS (11.7-14.9)
[2022-03-18 15:13] LABS: Partial Thromboplast Time 27.1 Seconds (24.1-36.2)
[2022-03-18 15:16] LABS: D-Dimer Quantitative (DVT/PE) 1.95 FEU/ug/m (0.27-0.49)
--- NOTE | 2022-03-18 15:24 | CT_ITS ---
STUDY: CTA CHEST REASON FOR EXAM: Female, 47 years old. Elevated D-dimer RADIATION DOSAGE (If Supplied By Facility): CTDIvol = ( 20.45 ) mGy, DLP = ( 629.78 ) mGycm TECHNIQUE: The examination was performed with the intravenous administration of IV 100mL Isovue-370. Post-processing of the angiographic images was performed, with multiplanar reformation and 3D reconstruction. Individualized dose optimization techniques were used for this CT. COMPARISON: Chest x-ray March 18, 2022. FINDINGS: Normal enhancement of the main pulmonary artery and right and left pulmonary arteries. There is limited enhancement of the bilateral peripheral pulmonary arteries. No major central pulmonary embolism. Smaller peripheral emboli difficult to exclude due to beam hardening artifact from intravenous contrast in the IVC. Normal thoracic aorta and visualized great vessels. There is no demonstrated aortic dissection. Normal heart and pericardium. Normal mediastinum. Normal hilar regions. Normal visualized trachea and bronchi. The lungs are well expanded. Normal pulmonary parenchyma. Normal pleura. Normal chest wall structures. Normal osseous structures. Normal visualized upper abdomen. CT/CTA Chest W/WO Contrast IMPRESSION: No major central pulmonary emboli. Small peripheral emboli are difficult to exclude. Electronically Signed: Trent Hunt MD at 16:25 [facility] ,
[2022-03-18] MEDS: hydrOXYzine PAM 25 MG Capsule PO (15:36)
--- NOTE | 2022-03-18 18:16 | CM.ED ---
SW Note Referral Source: pet adoption counselor Reason: Counseling Resources SW was informed by RN that the patient has a history of SI due to her previous job but was currently doing better and reported no SI/HI. RN explained patient was interested in counseling agencies to address mental health needs. SW met with patient and provided patient with list of local counseling agencies. Patient was receptive towards information. Dee Fountain MSW, [place]RISTINA
== END 2022-03-18 17:22 | disposition home or self-care (01) ==
PROVIDERS: Emergency Provider Emergency Medicine; PCP Nurse Practitioner Family; Visit Provider Emergency Medicine
DX: R00.2 Palpitations (principal); E66.9 Obesity, unspecified
CPT/HCPCS: 71046; 71275; 80053; 84703; 85025; 85379; 85610; 85730; 93005; 96360; 99285; J7030; Q9967; A4216